=== PATIENT | female | born 1990 | race African-American/Black ===

== ENCOUNTER 2017-12-21 09:01 | Emergency (ER) | payer OTHER ==
[~2017-12-21] VITALS: Ht 152.4 cm; Wt 77.3 kg
[2017-12-21 09:23] VITALS: BP 148/67; PULSE 90; RESP 20; TEMP 99; O2SAT 100
[2017-12-21] MEDS ORDERED: IBUPROFEN 600 MG TAB PO ONE (09:45)
--- NOTE | 2017-12-21 10:02 | PD ---
HPI Chief Complaint: Injury Time Seen by Provider: 09:27 Travel History International Travel<30 days: No Contact w/Intl Traveler<30days: No Traveled to known affect area: No History of Present Illness HPI Patient is a 27 year old female who comes in complaining of left arm pain after a fall last night. She says that she tripped and fell down two stairs, landing on her left side. She denies hitting her head or any LOC. She says the pain is mostly in her left forearm and wrist. She has not taken anything for pain. She denies numbness or tingling. Severity is mild. PFSH Past Medical History ?: Not Social History Alcohol Use: No Tobacco Use: No Substance Use: No Allergies-Medications (Allergen,Severity, Reaction): Coded Allergies: No Known Allergies (Unverified , 12/21/17) PATIENT STATES THAT SHE NOT ALLERGICE TO ANYTHING Review of Systems General / Constitutional: No: Fever, Chills HENT: No: Headaches, Lightheadedness Cardiovascular: No: Chest Pain or Discomfort Respiratory: No: Shortness of Breath Gastrointestinal: No: Nausea, Vomiting Musculoskeletal: Positive: Pain Skin: No Rash, No Change in Pigmentation Neurologic: No: Weakness, Dizziness Physical Exam Narrative GENERAL: Awake and alert, in no acute distress. SKIN: Focused skin assessment warm/dry. No wounds. HEAD: Atraumatic. Normocephalic. EYES: Pupils equal and round. No scleral icterus. ENT: No nasal bleeding or discharge. Mucous membranes pink and moist. CARDIOVASCULAR: Regular rate and rhythm. No murmur appreciated. RESPIRATORY: No accessory muscle use. Clear to auscultation. Breath sounds equal bilaterally. MUSCULOSKELETAL: Swelling to the left forearm, tender to palpation. Tender to palpation of the left wrist. Pulses intact. NEUROLOGICAL: Awake and alert. No obvious cranial nerve deficits. Motor grossly within normal limits. Normal speech. Data Data Last Documented VS Vital Signs Date Time Temp Pulse Resp B/P (MAP) Pulse Ox O2 Delivery O2 Flow Rate FiO2 12/21/17 09:23 99.0 90 20 148/67 (94) 100 Orders Orders Forearm (2vws) (12/21/17 ) Wrist, Complete ([id number]) (12/21/17 ) Ibuprofen (Motrin) (12/21/17 09:45) [facility] Medical Decision Making Medical Screen Exam Complete: Yes Emergency Medical Condition: Yes Medical Record Reviewed: Yes Differential Diagnosis fracture vs sprain vs contusion Narrative Course Patient is a 27 year old female who comes in complaining of pain to her left arm after a fall. Exam shows tenderness to the left forearm and wrist. XR obtained of the forearm and wrist show no acute abnormalities. Last 24 hours Impressions Wrist X-Ray 12/21/17 0000 Signed Impressions: CONCLUSION: No acute fracture left wrist Radius/Ulna X-Ray 12/21/17 0000 Signed Impressions: CONCLUSION: No acute fracture left forearm Advised to apply ice and take Tylenol or Ibuprofen as needed for pain. Return to the ED as needed for any worsening symptoms. Diagnosis Primary Impression: Left wrist sprain Qualified Codes: S63.502A - Unspecified sprain of left wrist, initial encounter Patient Instructions: General Instructions, Wrist Injury (ED) Additional Instructions: Take Tylenol or Ibuprofen as needed for pain. Apply ice several times a day. Return to the ED as needed for any worsening symptoms. Disposition: 01 DISCHARGE HOME Condition: Stable Kirsten Granger MD Dec 21, 2017 10:02
--- NOTE | 2017-12-21 10:16 | RADRPT ---
EXAM DATE: 12/21/2017 10:11 AM EDT AGE/SEX: 27 years / Female INDICATIONS: Trauma. CLINICAL DATA: This is the patient's initial encounter. Patient reports that signs and symptoms have been present for 1 day and indicates a pain score of 6/10. MEDICAL/SURGICAL HISTORY: None. None. COMPARISON: No prior exams available for comparison. FINDINGS: Bony structures are intact and in normal alignment. Osseous density is normal. Soft tissues are unre markable. No radiopaque foreign bodies seen. CONCLUSION: No acute fracture left forearm Electronically signed by: Monroe Coy MD 12/21/2017 10:15 AM EDT
--- NOTE | 2017-12-21 10:16 | RADRPT ---
EXAM DATE: 12/21/2017 10:10 AM EDT AGE/SEX: 27 years / Female INDICATIONS: Trauma CLINICAL DATA: This is the patient's initial encounter. Patient reports that signs and symptoms have been present for 1 day and indicates a pain score of 6/10. MEDICAL/SURGICAL HISTORY: None. None. COMPARISON: No prior exams available for comparison. FINDINGS: Bony structures are intact and in normal alignment. Joints are intact without dislocation or signifi cant arthropathy. Osseous density is normal. Soft tissues are unremarkable. No radiopaque foreign bodies seen. CONCLUSION: No acute fracture left wrist Electronically signed by: Monroe Coy MD 12/21/2017 10:15 AM EDT
== END 2017-12-21 11:17 | disposition home or self-care (01) ==
LOC: NEPD 09:01
DX: S63.502A Unspecified sprain of left wrist, initial encounter (principal); W10.9XXA Fall (on) (from) unspecified stairs and steps, initial encounter
CPT/HCPCS: 73090; 73110; 99283